=== PATIENT | male | born 1985 | race Caucasian/White ===

== ENCOUNTER 2023-04-16 09:50 | Outpatient (AMB) | payer OTHER, SELFPAY ==
[2023-04-16 09:51] VITALS: BP 122/72; PULSE 80; O2SAT 97; BMI 34.1
--- NOTE | 2023-04-16 09:51 | A.OFFPC_ITS ---
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 Old injury from 10 years ago. 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 Notes that he gets right ankle pain with cold weather. No pain at present. Uses some Tylenol for this. PMHx: R ankle fracture SurgHx: Hypoglossal Cyst removal FHx: Mom: Sciliosis, Arthritis. Dad: Colon polyps. GF: Pancreatic/Colon CA. mGF: DM SocHx: Occasional Cigar. EtOH: Occasional 1-2 dr. No drugs. [facility] Medical History (Updated 04/16/23 @ 10:19 by Indra Amin) Fracture of right ankle Irregular heart beat Stroke-like symptoms Surgical History (Updated 04/16/23 @ 10:05 by Shannan Orlando CMA) H/O removal of cyst Family History (Updated 04/16/23 @ 10:09 by Shannan Orlando CMA) Mother Low back problem Alcoholism Paternal Grandfather Cancer Maternal Grandfather Alcoholism Brother Substance abuse Social History (Updated 04/16/23 @ 10:14 by Shannan Orlando CMA) Household Members: Spouse Housing: Apartment Alcohol intake: current Tobacco use type: Cigar e-Cigarette/Vaping Use: Never Used Use of substances other than those prescribed or required for medical reasons: No Have you been hit, kicked, punched, or otherwise hurt by someone within the past year? If so, by whom?: No Do you feel safe in your current relationship?: Yes Is there a partner from a previous relationship who is making you feel unsafe now?: No Are you made to feel afraid or neglected: No Buddhist Healthcare Practices: yarsanism Are you DNR?: No Healthcare Proxy: No service: No Current occupational status: employed Cognitive needs: No Hearing needs: No Vision needs: No Questionnaire PHQ-9 Over the last 2 weeks, how often have you been bothered by any of the following problems? 1. Little interest or pleasure in doing things: not at all 2. Feeling down, depressed, or hopeless: not at all 3. Trouble falling or staying asleep, or sleeping too much: not at all 4. Feeling tired or having little energy: not at all 5. Poor appetite or overeating: not at all 6. Feeling bad about yourself - or that you are a failure or have let yourself or your family down: not at all 7. Trouble concentrating on things, such as reading the newspaper or watching television: not at all 8. Moving or speaking so slowly that other people could have noticed. Or the opposite - being so fidgety or restless that you have been moving around a lot more than usual: not at all 9. Thoughts that you would be better off or of hurting yourself in some way: not at all Total score: 0 Source: Developed by Drs. Wes Javier, Alicia Bowden, George Mcmahan and colleagues, with an educational elliott from [employer]. Thrive Questionnaire I am a: Patient What is your living situation today?: I have a steady place to live Within the past 12 months, did the food you bought not last and you didn't have the money to get more?: Never true Within the past 12 months, did you worry whether your food would run out before you got money to buy more?: Never true Do you have trouble paying for medicines?: No Do you have trouble getting transportation to medical appointments?: No Do you have trouble paying your heating and electricity bill?: No Do you have trouble taking care of your child, family member or friend?: No Do you have trouble with day-to-day activities such as bathing, preparing meals, shopping, managing finances, etc.?: No Are you currently unemployed and looking for a job?: No Are you interested in more education?: Yes AUDIT C Alcohol Use Questionnaire (AUDIT-C) 1. How often do you have a drink containing alcohol?: Monthly or less 2. How many drinks containing alcohol do you have on a typical day when you are drinking?: 1 or 2 3. How often do you have six or more drinks on one occasion?: Never Total Score: 1 CATALINA-7 AMB Questionnaire CATALINA-7 Date CATALINA - 7 assessed: 04/16/23 Feeling nervous, anxious, or on edge: 0 = Not at all Not being able to stop or control worryin = Not at all Worrying too much about different things: 0 = Not at all Trouble relaxin = Not at all Being so restless that it is hard to sit still: 0 = Not at all Becoming easily annoyed or irritable: 0 = Not at all Feeling afraid as if something awful might happen: 0 = Not at all Total CATALINA-7 score (0-4 normal; 5-9 mild; 10-14 moderate; 15-21 severe): 0 Source: Developed by Drs. Wes Javier, Alicia Bowden, George Mcmahan and colleagues, with an educational elliott from [employer]. Review of Systems Const Denies chills, Denies fatigue, Denies fever(s), Denies headache(s) and Denies weakness ENT Denies dizziness and Denies headache(s) Card Denies chest pain, Denies lightheadedness, Denies dyspnea and Denies other (Palpitations) Resp Denies cough, Denies dyspnea, Denies wheezing and Denies other ( shortness of breath) Musc Denies numbness and Denies tingling Neuro Denies dizziness, Denies headache(s), Denies numbness, Denies tingling, Denies paresthesias and Denies weakness Psych Denies anxiety and Denies depression Endo Denies fatigue Aller/Immun Denies wheezing Physical exam (Primary Care) Vital Signs: Last Vital Signs Pulse 80 04/16/23 09:51 BP 122/72 04/16/23 09:51 Pulse Ox 97 04/16/23 09:51 Oxygen Delivery Method Room Air 04/16/23 09:51 BMI result Body Mass Index 34.1 Tobacco/Smoking Status: Tobacco use Status Tobacco use date assessed 04/16/23 04/16/23 10:16 Tobacco use type Cigar 04/16/23 10:16 e-Cigarette/Vaping Use Never Used 04/16/23 10:16 PHQ-9: PHQ-9 Score PHQ-9: Total score 0 04/16/23 10:17 Const General: no acute distress and well developed Nutritional Appearance: well nourished Orientation/consciousness: patient oriented x3 HENMT Head: Yes normocephalic and Yes atraumatic Eyes General: appearance normal, both eyes and all related structures Pupils: Equal, round and reactive pupils present EOM: EOMs intact bilaterally Resp Effort & Inspection: normal respiratory effort Auscultation: clear to auscultation bilaterally Cardio Rate: regular rate Rhythm: regular rhythm Heart sounds: S1 normal heart sound present, S2 normal heart sound present, no gallops, no murmurs and no rubs Neuro General: patient oriented x3 and gait normal Cranial nerves: Yes Equal, round and reactive pupils present Psych Affect: normal affect Assessment and Plan Assessment & Plan (1) Right ankle pain: Code(s): M25.571 - Pain in right ankle and joints of right foot Plan: Intermittent right ankle pain associated with changes in weather after her a fracture 10 years ago. Likely some mild arthritis in tendinitis He can use ibuprofen, ice/heat and gentle stretching. If this flares up, he can let me know and I will refer him for physical therapy. (2) Laboratory exam ordered as part of routine general medical examination: Code(s): Z00.00 - Encounter for general adult medical examination without abnormal findings Plan: Check labs Orders: Orders Comprehensive [place]. Panel Fast Today Z00.00 - Encounter for general adult medical examination without abnormal findings Lipid Panel Today Z00.00 - Encounter for general adult medical examination without abnormal findings TSH reflex Free T4 Today Z00.00 - Encounter for general adult medical examination without abnormal findings Microalbumin, Random (w Creat) Today I10 - Essential (primary) hypertension Hepatitis B,C Profile Today Z11.3 - Encounter for screening for infections with a predominantly sexual mode of transmission HIV Ab/Ag Today Z11.3 - Encounter for screening for infections with a predominantly sexual mode of transmission Syphilis Screen Today Z11.3 - Encounter for screening for infections with a predominantly sexual mode of transmission UA and rflx microscopic Today Z00.00 - Encounter for general adult medical examination without abnormal findings CT NG by PCR Today Z11.3 - Encounter for screening for infections with a pr edominantly sexual mode of transmission Coding Level of Care Code New Pt Level 3 (26797) Diagnoses Right ankle pain M25.571 Laboratory exam ordered as part of routine general medical examination Z00.00
== END 2023-04-16 10:48 | disposition home or self-care (01) ==
PROVIDERS: Visit Provider Family Medicine
DX: M25.571 Pain in right ankle and joints of right foot (principal); Z00.00 Encounter for general adult medical examination without abnormal findings
CPT/HCPCS: 99203

== ENCOUNTER 2023-06-02 22:04 | Emergency (ER) | payer OTHER, SELFPAY ==
[2023-06-02 22:17] VITALS: BP 138/83; PULSE 72; RESP 18; TEMP 36.8; O2SAT 97; BMI 33.7
--- NOTE | 2023-06-03 00:01 | ED.GENADULT ---
HPI - General Adult General Chief complaint: Wound/Laceration Stated complaint: Laceration left thumb Time Seen by Provider: 06/02/23 23:41 Source: patient, RN notes reviewed and old records reviewed Mode of arrival: ambulatory Limitations: no limitations History of Present Illness HPI narrative: 38-year-old male presents for evaluation of a left thumb laceration. Patient reports that he was cutting dinner, cabbage, when he accidentally cut his left thumb He sustained a small laceration to the dorsal surface left thumb. Bleeding controlled prior to arrival He is unsure when his last tetanus was He reports that he has a PCP appointment coming up and will determine if he needs a tetanus booster at that appointment Related Data Home Medications Medication Instructions Recorded Confirmed No Known Home Meds 04/16/23 04/16/23 Allergies Allergy/AdvReac Type Severity Reaction Status Date / Time Seasonal Allergies Allergy Mild itchy, Verified 06/02/23 22:17 watery eyes, sneezing Review of Systems Integumentary/Breasts: Skin/Breast: Reports wounds PMFSH Past Medical History Medical History (Updated 06/03/23 @ 00:03 by Ric Coffman) Stroke-like symptoms Irregular heart beat Fracture of right ankle Surgical History (Updated 04/16/23 @ 10:05 by Shannan Orlando CMA) H/O removal of cyst Family History Family History (Updated 04/16/23 @ 10:09 by Shannan Orlando CMA) Mother Low back problem Alcoholism Paternal Grandfather Cancer Maternal Grandfather Alcoholism Brother Substance abuse Social History Social History (Updated 04/16/23 @ 10:14 by Shannan Orlando CMA) Household Members: Spouse Housing: Apartment Alcohol intake: current Tobacco use type: Cigar e-Cigarette/Vaping Use: Never Used Advance Directives: No Advance Directives Information Provided: No service: No Current occupational status: employed Cognitive needs: No Hearing needs: No Vision needs: No Physical Exam ED Vital Signs: Vital Signs - 24 hr 06/02/23 22:17 Temperature 98.3 F Pulse Rate 72 Respiratory Rate 18 Blood Pressure 138/83 Pulse Oximetry 97 Oxygen Delivery Method Room Air BMI result Body Mass Index 33.7 Const General: healthy appearing, comfortable, no acute distress, alert and awake Nutritional Appearance: well nourished Orientation/consciousness: patient oriented x3 Resp Effort & Inspection: normal respiratory effort, able to speak in complete sentences and not labored Skin Other: 2 cm partial-thickness linear laceration that is well-approximated to the dorsal surface of the right 1st proximal phalanges. No active bleeding General skin exam: elasticity normal Neuro General: patient oriented x3 Cranial nerves: Yes Bilaterally intact EOM present Cognition (Neuro): normal cognition Extrem Other: Moving all extremities well without any obvious deformities Full range of motion of flexion, extension of the left 1st finger as well as opposition of the left 1st finger Procedures Laceration Laceration 1: Site: hand Side (If applicable): left (thumb) Size (cm): 2 Description: linear Depth: simple, single layer (Partial-thickness) Skin layer closed with: other (Skin adhesive) Medical Decision Making Medical Decision Making MDM Narrative: Patient had a small linear partial-thickness laceration. It was not over a joint and was not active bleeding, therefore it was closed with Dermabond adhesive tissue. The wound was irrigated copiously and cleaned with Betadine prior to closure Differential Diagnosis Differential Diagnoses: The differential diagnosis associated with the presentation includes Laceration Skin tear Abrasion Puncture wound Discharge Plan Discharge Clinical Impression: Laceration of left thumb Patient Disposition: Home, Self-Care Instructions: Laceration (ED) Additional Instructions: Keep the area clean and dry The glue should dissolve on its own about 1 week You declined a tetanus booster today Follow-up with your primary doctor Prescriptions: No Action No Known Home Meds Interventions: ED Discharge Assessment Last Done: 06/03/23 00:11 Discharge Date/Time: 06/03/23 00:13
--- NOTE | 2023-06-03 00:12 | PC.NURSE ---
pt has 1 inch lac on L hand by thumb, bleeding under control, skin glue applied
== END 2023-06-03 00:13 | disposition home or self-care (01) ==
PROVIDERS: Emergency Provider Emergency Medicine; PCP Family Medicine
DX: S61.012A Laceration without foreign body of left thumb without damage to nail, initial encounter (principal); W26.0XXA Contact with knife, initial encounter; Y93.G1 Activity, food preparation and clean up; Y92.9 Unspecified place or not applicable; Y99.9 Unspecified external cause status
CPT/HCPCS: 12001; 99282; 99283

== ENCOUNTER 2023-07-23 09:54 | Outpatient (AMB) | payer OTHER, SELFPAY ==
--- NOTE | 2023-07-23 10:21 | MHC.PC.OV ---
Vital Signs 07/23/23 10:22 Height 6 ft 3 in Weight 272 lb BMI 34.0 BP 124/72 Blood Pressure Location Lt brachial Position Sitting Pulse 100 Pulse Source Pulse Oximeter Pulse Oximetry (%) 95 Oxygen Delivery Method Room Air Intake Visit Reasons: CPE with f/u labs and health maintenance Intake Note: Patient is here for his physical today, was not able to get his labs done. Allergies Seasonal Allergies Allergy (Mild, Verified 07/23/23 10:25) itchy, watery eyes, sneezing Tobacco use date assessed: 07/23/23 Dental Screening Dental Screen Date: 07/23/23 Did you have a dental visit in the last 12 months?: Yes Did you have a dental problem in the last 6 months where you did not have access to dental care?: No Was dental information given to patient?: Patient has dentist HPI CPE with f/u labs and health maintenance HPI Details 38 y/o male presents for a CPE with f/u labs and health maintenance. No recent labs to review. Pt reports ongoing mild cough s/p covid infection in May. Pt reports he has been eating a healthy diet. He walks and lifts for exercise. He works at an [employer]. 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 Wes Javier, Alicia Bowden, George Mcmahan and colleagues, with an educational elliott from [employer] Review of Systems Const Denies chills, Denies fatigue, Denies fever(s), Denies headache(s) and Denies weakness Eyes Denies change in vision ENT Denies dizziness, Denies headache(s), Denies hearing loss, Denies nasal congestion, Denies sinus pain, Denies sinus pressure and Denies sore throat Card Denies chest pain, Denies lightheadedness, Denies dyspnea and Denies other (palpitations) Resp Reports cough, Denies dyspnea and Denies wheezing GI Denies abdominal pain, Denies melena, Denies hematochezia, Denies change in bowel habits, Denies dyspepsia and Denies nausea Denies hematuria and Denies dysuria Musc Denies abnormal gait, Denies myalgias, Denies arthralgias, Denies numbness and Denies tingling Skin/Breast Denies rash, Denies unusual bruising and Denies wounds Neuro Denies abnormal gait, Denies dizziness, Denies headache(s), Denies memory loss, Denies numbness, Denies Sensory deficit (Neuro), Denies tingling and Denies weakness Psych Denies anxiety, Denies depression and Denies memory loss Endo Denies cold intolerance, Denies fatigue, Denies heat intolerance, Denies polydipsia and Denies polyuria [place]na/Lymph Denies easy bleeding and Denies easy bruising Aller/Immun Denies wheezing Physical exam (Primary Care) Vital Signs: Last Vital Signs Pulse 100 07/23/23 10:22 BP 124/72 07/23/23 10:22 Pulse Ox 95 07/23/23 10:22 Oxygen Delivery Method Room Air 07/23/23 10:22 BMI result Body Mass Index 34.0 Tobacco/Smoking Status: Tobacco use Status Tobacco use date assessed 07/23/23 07/23/23 10:28 Tobacco use type Cigar 07/23/23 10:28 e-Cigarette/Vaping Use Never Used 07/23/23 10:28 Const General: no acute distress, well developed, alert and awake Nutritional Appearance: well nourished Orientation/consciousness: patient oriented x3 HENMT Head: Yes normocephalic and Yes atraumatic Ears: hearing grossly normal bilaterally and TM's normal bilaterally General nose exam: Normal external nose present and Normal nares present Mouth: Normal oral and palatal mucosa present and moist mucous membranes Teeth and gingiva: dentition normal Throat: Yes posterior oropharynx normal Eyes General: appearance normal, both eyes and all related structures Pupils: Equal, round and reactive pupils present and Pupil accommodation reflex normal EOM: EOMs intact bilaterally Neck Neck: Yes normal visual inspection, Yes no lymphadenopathy and Yes trachea midline Thyroid: Thyroid normal Carotids: no bruits Lymphatic: no lymphadenopathy noted Chest Chest palpation & inspection: normal inspection of the chest Resp Effort & Inspection: normal respiratory effort Auscultation: clear to auscultation bilaterally Cardio Rate: regular rate Rhythm: regular rhythm Heart sounds: S1 normal heart sound present, S2 normal heart sound present, no gallops, no murmurs and no rubs Bruits: no abdominal aortic bruits and no carotid bruits GI Palpation (GI): No Abdominal aortic bruit present, Soft to palpation, nontender, No hepatosplenomegaly present and No Rebound tenderness present Auscultation: normal bowel sounds General: Yes no CVA tenderness Back/Spine/Pelvis Back: no CVA tenderness Cervical Spine: cervical ROM normal and No Cervical spine tenderness Thoracic/Lumbar Spine: thoraco-lumbar ROM normal, No pain with thoraco-lumbar ROM, No thoracic spinal tenderness and No lumbar spinal tenderness Skin Lesions: no lesions Rashes: no rashes Trauma: no lacerations or abrasions Wounds: no wounds Nails: normal Neuro General: patient oriented x3 Cranial nerves: Yes Equal, round and reactive pupils present Cognition (Neuro): normal cognition Gait exam (Neuro): Normal gait present Motor exam (neuro): 5/5 motor strength present throughout Sensory Exam: No Sensory deficit (Neuro) Deep tendon reflexes (DTR's): Right patellar reflex intensity grade: 2+ and Left patellar reflex intensity grade: 2+ Extrem General: Yes normal to inspection and No edema Psych Appearance: grossly normal Affect: normal affect Attitude: cooperative Thought process: Normal thought process present Assessment and Plan Assessment & Plan (1) Adult general medical exam: Code(s): Z00.00 - Encounter for general adult medical examination without abnormal findings Plan: 38-year-old?male?presents?for?complete?physical?exam Encouraged?healthy?diet?with?active?lifestyle?and?plenty?of?exercise (2) Cough: Code(s): R05.9 - Cough, unspecified Plan: S/P COVID?infection. Resolving Coding Level of Care Code Est Pt Level 3 (57560) Est Pt Prev Care 18-39y(36913) Diagnoses Adult general medical exam Z00.00 Cough R05.9
[2023-07-23 10:22] VITALS: BP 124/72; PULSE 100; O2SAT 95; BMI 34.0
== END 2023-07-23 12:01 | disposition home or self-care (01) ==
PROVIDERS: PCP Family Medicine; Visit Provider Family Medicine
DX: Z00.00 Encounter for general adult medical examination without abnormal findings (principal); R05.9 Cough, unspecified
CPT/HCPCS: 99395

== ENCOUNTER 2023-12-28 09:38 | Outpatient (AMB) | payer OTHER, SELFPAY ==
[2023-12-28 09:43] VITALS: BP 128/74; PULSE 75; O2SAT 98; BMI 34.3
--- NOTE | 2023-12-28 09:43 | MHC.PC.OV ---
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 Exam?was?within?normal?limits?and?his?exam?today?is?okay.??No?concerns. 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 Kal, George Mcmahan and colleagues, with an educational elliott from [employer]. Review of Systems Const Denies chills, Denies fatigue, Denies fever(s), Denies headache(s) and Denies weakness ENT Denies dizziness and Denies headache(s) Card Denies dyspnea Resp Denies cough, Denies dyspnea, Denies wheezing and Denies other (shortness of breath) Musc Denies numbness and Denies tingling Neuro Denies dizziness, Denies headache(s), Denies numbness, Denies tingling and Denies weakness Psych Denies anxiety and Denies depression Endo Denies fatigue Aller/Immun Denies wheezing Physical exam (Primary Care) Vital Signs: Last Vital Signs Pulse 75 12/28/23 09:43 BP 128/74 12/28/23 09:43 Pulse Ox 98 12/28/23 09:43 Oxygen Delivery Method Room Air 12/28/23 09:43 BMI result Body Mass Index 34.3 Tobacco/Smoking Status: Tobacco use Status Tobacco use date assessed 12/28/23 12/28/23 09:47 Patient Tobacco Use Status Current someday Tobacco 12/28/23 09:47 Tobacco use type Cigar 12/28/23 09:47 e-Cigarette/Vaping Use Never Used 12/28/23 09:47 Const General: well developed; No acute distress Nutritional Appearance: well nourished Orientation/consciousness: patient oriented x3 [facility]: Yes normocephalic and Yes atraumatic Eyes General: appearance normal, both eyes and all related structures Pupils: Equal, round and reactive pupils present EOM: EOMs intact bilaterally Resp Effort & Inspection: normal respiratory effort Neuro General: patient oriented x3 and gait normal Cranial nerves: Yes Equal, round and reactive pupils present Psych Affect: normal affect Assessment and Plan Assessment & Plan (1) Adult general medical exam: Code(s): Z00.00 - Encounter for general adult medical examination without abnormal findings Plan: As?above,?reviewed?patient's?June?complete?physical?exam Exam?today?within?normal?limits.??No?concerns?regarding?his?physical?or?mental?health. Filled?out?paperwork?for?patient?to?is?working?on?adoption?of?child No?concerns. Coding Level of Care Code Est Pt Level 3 (61426) Diagnoses Adult general medical exam Z00.00
== END 2023-12-28 10:28 | disposition home or self-care (01) ==
PROVIDERS: PCP Family Medicine; Visit Provider Family Medicine
DX: Z02.82 Encounter for adoption services (principal)
CPT/HCPCS: 99213

== ENCOUNTER 2024-02-23 09:59 | Outpatient (REF) | payer OTHER, SELFPAY ==
[2024-02-23 11:27] LABS: Appearance Urine Clear; Color Urine Yellow; Glucose Urine UA Negative (Negative); Leukocyte Esterase Urine Negative (Negative); Nitrite Urine Negative (Negative); PH 6.5 (5.0-9.0); Specific Gravity - Urine 1.015 (1.005-1.025); Urine Blood Negative (Negative); Urine Ketones Negative (Negative); Urine Protein Negative (Neg-Trace)
[2024-02-23 11:45] LABS: Creatinine Urine 117.63 mg/dL; Microalbum/Creatinine Ratio Ur 5.1 ug/mg cr (<30)
[2024-02-23 11:56] LABS: Alanine Aminotransferase 26 U/L (0-40); Albumin Level 4.3 g/dL (3.5-5.0); Alkaline Phosphatase 48 U/L (39-117); Anion Gap 13 (12-20); Aspartate Amino Transferase 21 U/L (5-37); Bilirubin Total 0.6 mg/dL (0.0-1.0); Blood Urea Nitrogen 10 mg/dL (9-16); Calcium 9.6 mg/dL (8.4-10.2); Carbon Dioxide 28 mmol/L (22-29); Chloride 107 mmol/L (96-108); Cholesterol 221 mg/dL (<200); Estimated Glomerular Filt Rate > 60; Glucose Fasting 95 mg/dL (60-99); HDL Cholesterol 34 mg/dL (>40); LDL Cholesterol Calculated 163 mg/dL (<100); Potassium 4.8 mmol/L (3.3-5.1); Sodium 143 mmol/L (135-145); Total Protein 7.7 g/dL (6.5-8.0); Triglycerides 122 mg/dL (<150)
[2024-02-23 12:05] LABS: TSH reflex Free T4 2.26 uIU/mL (0.32-4.0)
[2024-02-25 03:33] LABS: Syphilis Screen Nonreactive (Nonreactive)
[2024-02-25 03:47] LABS: HBS Num1 11.97 mIU/mL (0-7.99); HBc Num1 0.16 S/CO (0.00-0.79); HBsAGNum1 0.29 S/CO (0.00-0.99); HIV AB/AG Nonreactive (Nonreactive); HIV Num 1 0.06 S/CO (0.00-0.99); Hepatitis B Core Antibody Nonreactive (Nonreactive); Hepatitis B Surface Antigen Negative (Negative); ~HepC Num1 0.18 S/CO (0.00-0.79); ~Hepatitis C Antibody Nonreactive (Nonreactive)
[2024-02-25 04:33] LABS: HBS Num2 12.22 mIU/mL (0-7.99); HBS Num3 12.39 mIU/mL (0-7.99); ~Hepatitis B Surface Antibody REACTIVE (Nonreactive)
== END 2024-02-23 10:00 | disposition home or self-care (01) ==
LOC: HO.HMGCLDS 09:59
PROVIDERS: PCP Family Medicine; Visit Provider Family Medicine
DX: Z00.00 Encounter for general adult medical examination without abnormal findings (principal); I10 Essential (primary) hypertension; Z11.3 Encounter for screening for infections with a predominantly sexual mode of transmission
CPT/HCPCS: 36415; 80053; 80061; 81003; 82043; 82570; 84443; 86704; 86706; 86780; 86803; 87340; 87389

== ENCOUNTER 2024-02-25 08:37 | Outpatient (AMB) | payer OTHER, SELFPAY ==
[2024-02-25 08:40] VITALS: BP 118/72; PULSE 67; O2SAT 97; BMI 33.2
--- NOTE | 2024-02-25 08:40 | MHC.PC.OV ---
Vital Signs 02/25/24 08:40 Height 6 ft 3 in Weight 265 lb 4 oz BMI 33.2 BP 118/72 Blood Pressure Location Lt brachial Position Sitting Pulse 67 Pulse Source Pulse Oximeter Pulse Oximetry (%) 97 Oxygen Delivery Method Room Air Intake Visit Reasons: F/U lab results Intake Note: Patient is here to follow up on lab work today. Allergies Seasonal Allergies Allergy (Mild, Verified 02/25/24 08:42) itchy, watery eyes, sneezing Medication List - Last Reconciled 02/25/24 by Ramirez Grant MD No Known Home Meds Tobacco use date assessed: 02/25/24 Dental Screening Dental Screen Date: 12/28/23 HPI F/U lab results HPI Details 38 y/o male presents to f/u labs. Reviewed labs with pt. Triglycerides 122. TC 221. LDL 153. HDL low at 34. 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 Wes Javier, Alicia Bowden, George Mcmahan and colleagues, with an educational elliott from [employer]. Review of Systems Const Denies chills, Denies fatigue, Denies fever(s), Denies headache(s) and Denies weakness ENT Denies dizziness and Denies headache(s) Card Denies dyspnea Resp Denies cough, Denies dyspnea, Denies wheezing and Denies other (shortness of breath) Musc Denies numbness and Denies tingling Neuro Denies dizziness, Denies headache(s), Denies numbness, Denies tingling and Denies weakness Psych Denies anxiety and Denies depression Endo Denies fatigue Aller/Immun Denies wheezing Physical exam (Primary Care) Vital Signs: Last Vital Signs Pulse 67 02/25/24 08:40 BP 118/72 02/25/24 08:40 Pulse Ox 97 02/25/24 08:40 Oxygen Delivery Method Room Air 02/25/24 08:40 BMI result Body Mass Index 33.2 Tobacco/Smoking Status: Tobacco use Status Tobacco use date assessed 02/25/24 02/25/24 08:45 Patient Tobacco Use Status Current someday Tobacco 02/25/24 08:45 Tobacco use type Cigar 02/25/24 08:45 e-Cigarette/Vaping Use Never Used 02/25/24 08:45 Const General: well developed; No acute distress Nutritional Appearance: well nourished Orientation/consciousness: patient oriented x3 HENMT Head: Yes normocephalic and Yes atraumatic Eyes General: appearance normal, both eyes and all related structures Pupils: Equal, round and reactive pupils present EOM: EOMs intact bilaterally Resp Effort & Inspection: normal respiratory effort Neuro General: patient oriented x3 and gait normal Cranial nerves: Yes Equal, round and reactive pupils present Psych Affect: normal affect Assessment and Plan Assessment & Plan (1) Hyperlipidemia: Code(s): E78.5 - Hyperlipidemia, unspecified Plan: TC?and?LDL?Cholesterol?levels?are?too?high?and?HDL is?low. Starting?atorvastatin He?will?recheck?lipids?a?few?days?prior?to?her?next?visit?in?about?3?months. (2) Low HDL (under 40): Code(s): E78.6 - Lipoprotein deficiency Orders: Orders Lipid Panel Today E78.5 - Hyperlipidemia, unspecified, Z00.00 - Encounter for general adult medical examination without abnormal findings Comprehensive [place]. Panel Fast Today E78.5 - Hyperlipidemia, unspecified, Z00.00 - Encounter for general adult medical examination without abnormal findings Medications: New atorvastatin 40 mg PO BEDTIME 90 days 90 tabs 2RF Coding Level of Care Code Est Pt Level 3 (13609) Diagnoses Hyperlipidemia E78.5 Low HDL (under 40) E78.6
== END 2024-02-25 08:57 | disposition home or self-care (01) ==
PROVIDERS: PCP Family Medicine; Visit Provider Family Medicine
DX: E78.5 Hyperlipidemia, unspecified (principal); E78.6 Lipoprotein deficiency
CPT/HCPCS: 99213

== ENCOUNTER 2024-04-07 08:36 | Outpatient (AMB) | payer OTHER, SELFPAY ==
--- NOTE | 2024-04-07 08:40 | MHC.OFFWIV ---
Intake Vital Signs 04/07/24 08:41 Height 6 ft 3 in Weight 272 lb BMI 34.0 BP 130/90 H Blood Pressure Location Rt brachial Position Sitting Pulse 99 Pulse Source Pulse Oximeter Pulse Oximetry (%) 97 Oxygen Delivery Method Room Air Intake Visit Reasons: EP RT ankle injury Intake Note: Patient here for right ankle injury that happened in a trampoline foam pit. pt has a hx of right ankle injury in the past. Patient Tobacco Use Status: Current someday Tobacco user Allergies Seasonal Allergies Allergy (Mild, Verified 04/07/24 08:41) itchy, watery eyes, sneezing Do you need a note to return to daycare/school/sports/work: Yes HPI EP RT ankle injury HPI Details This note is constructed using voice recognition software. While every effort has been made to ensure accuracy, mail clerk errors may have been included. The patient is a 38 year old male who presents to the clinic today with right ankle pain on the medial aspect after ending in the foam pit [place] the [employer] park. He notes that he is able to walk but he is walking with a limp, he has mild pain, taking ibuprofen as needed. He has applied Aristeo wrap applied ice. 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 Cognitive needs: No Hearing needs: No Vision needs: No Review of Systems Const All systems reviewed & are unremarkable except as noted in HPI and below Physical Exam Vital Signs: Last Vital Signs Pulse 99 04/07/24 08:41 BP 130/90 H 04/07/24 08:41 Pulse Ox 97 04/07/24 08:41 Oxygen Delivery Method Room Air 04/07/24 08:41 BMI result Body Mass Index 34.0 Const General: cooperative, healthy appearing, comfortable, no acute distress and alert Orientation/consciousness: patient oriented x3 Limitations: no limitations Skin General skin exam: no rashes or lesions noted, elasticity normal and turgor normal Neuro General: patient oriented x3 Extrem Other: Negative thomspon. FROM. TTP posterior to medial maleolus. Echymosis and edema present throughout. General: Yes normal to inspection, Yes full ROM, Yes capillary refill normal and Yes normal exam except as noted Psych Appearance: grossly normal Mental Status: mental status grossly normal Speech and movement: Normal speech and movement present Affect: normal affect Assessment & Plan Assessment & Plan (1) Ankle fracture, right: Code(s): S82.891A - Other fracture of right lower leg, initial encounter for closed fracture Qualifiers: Encounter type: initial encounter Fracture type: closed Qualified Code(s): S82.891A - Other fracture of right lower leg, initial encounter for closed fracture Plan: X-ray appears to have avulsion fracture. Aristeo wrap remains in place, patient provided with boot. Referral to ortho placed. Letter provided for out of work until evaluation by ortho. Advised rest, ice, compression, elevation, boot when he is out of bed walking. Plan See above for full details and plan. Orders: Referrals Orthopedics Referral S82.891A - Other fracture of right lower leg, initial encounter for closed fracture Coding Level of Care Code Est Pt Level 4 (02859) Diagnoses Closed fracture of right ankle, initial encounter S82.891A Encounter type: initial encounter Fracture type: closed
[2024-04-07 08:41] VITALS: BP 130/90; PULSE 99; O2SAT 97; BMI 34.0
== END 2024-04-07 10:54 | disposition home or self-care (01) ==
PROVIDERS: PCP Family Medicine; Visit Provider Registered Nurse
DX: S82.891A Other fracture of right lower leg, initial encounter for closed fracture (principal)
CPT/HCPCS: 99214

== ENCOUNTER 2024-04-07 09:29 | Outpatient (REF) | payer OTHER, SELFPAY ==
--- NOTE | ~2024-04-07 | XR_ITS ---
EXAMINATION: XR ANKLE, RIGHT CLINICAL INFORMATION: Pain COMPARISON: None available. TECHNIQUE: AP, lateral, and mortise views of the right ankle. FINDINGS: No acute visible fracture or dislocation. 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 Ankle mortise is symmetric. Plantar calcaneal heel spur. Enthesopathy at the Achilles tendon insertion site. Joint space alignment otherwise maintained. Soft tissue prominence along the lower extremity, ankle, and hindfoot. XR/XR ankle RT min 3V IMPRESSION: 1. No acute visible fracture or dislocation. 2. 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 3. Plantar calcaneal heel spur. 4. Enthesopathy at the Achilles tendon insertion site. 5. Soft tissue prominence along the lower extremity, ankle, and hindfoot.
== END 2024-04-07 09:30 | disposition home or self-care (01) ==
LOC: HO.HMGCX 09:29
PROVIDERS: PCP Family Medicine; Visit Provider Registered Nurse
DX: M25.571 Pain in right ankle and joints of right foot (principal)
CPT/HCPCS: 73610

== ENCOUNTER 2024-05-26 08:40 | Outpatient (AMB) | payer OTHER, SELFPAY ==
[2024-05-26 08:43] VITALS: BP 116/60; PULSE 83; RESP 12; TEMP 36.7; O2SAT 97; BMI 34.0
--- NOTE | 2024-05-26 08:43 | A.OFFPC_ITS ---
Vital Signs 05/26/24 08:43 Height 6 ft 3 in Weight 272 lb 2 oz BMI 34.0 BP 116/60 Blood Pressure Location Lt brachial Position Sitting Respiration 12 Pulse 83 Pulse Source Pulse Oximeter Temp 98.0 F Temp Source Oral Pulse Oximetry (%) 97 Oxygen Delivery Method Room Air Intake Visit Reasons: f/u HLD Intake Note: follow up for hdl Allergies Seasonal Allergies Allergy (Mild, Verified 05/26/24 08:43) itchy, watery eyes, sneezing Tobacco use date assessed: 02/25/24 Dental Screening Dental Screen Date: 12/28/23 HPI f/u HLD HPI Details 39 y/o male presents to f/u HLD. No recent labs to review. Had already reviewed labs drawn in January. Triglycerides 122. TC 221. LDL 163. HDL low at 34. Had started him on artovastatin 40mg. Patient?has?not?gotten?his?labs?drawn?yet. Notes he had fallen off artovastatin. Wants?to?discuss?ankle. X-ray appeared to have avulsion fracture. Was referred to [facility] and had been following up with them. Continues to elevate/ice his ankle. HPI Comments History of Present Illness Details Documentation assistance for Ramirez Grant MD, was provided by Indra Amin, Ultrasonic Tester on 05/26/2024 at 8:56 AM EST. I, Dr. Grant, have read, observed, and verified documentation. 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 Wes Javier, Alicia Bowden, George Mcmahan and colleagues, with an educational elliott from [employer]. Review of Systems Const Denies chills, Denies fatigue, Denies fever(s), Denies headache(s) and Denies weakness ENT Denies dizziness and Denies headache(s) Card Denies dyspnea Resp Denies cough, Denies dyspnea, Denies wheezing and Denies other (shortness of breath) Musc Denies numbness and Denies tingling Neuro Denies dizziness, Denies headache(s), Denies numbness, Denies tingling and Denies weakness Psych Denies anxiety and Denies depression Endo Denies fatigue Aller/Immun Denies wheezing Physical exam (Primary Care) Vital Signs: Last Vital Signs Temp 98.0 F 05/26/24 08:43 Pulse 83 05/26/24 08:43 Resp 12 05/26/24 08:43 BP 116/60 05/26/24 08:43 Pulse Ox 97 05/26/24 08:43 Oxygen Delivery Method Room Air 05/26/24 08:43 BMI result Body Mass Index 34.0 Tobacco/Smoking Status: Tobacco use Status Tobacco use date assessed 02/25/24 05/26/24 08:47 Patient Tobacco Use Status Current someday Tobacco 05/26/24 08:47 Tobacco use type Cigar 05/26/24 08:47 e-Cigarette/Vaping Use Never Used 05/26/24 08:47 Const General: well developed; No acute distress Nutritional Appearance: well nourished Orientation/consciousness: patient oriented x3 [facility] Head: Yes normocephalic and Yes atraumatic Eyes General: appearance normal, both eyes and all related structures Pupils: Equal, round and reactive pupils present EOM: EOMs intact bilaterally Resp Effort & Inspection: normal respiratory effort Neuro General: patient oriented x3 and gait normal Cranial nerves: Yes Equal, round and reactive pupils present Extrem Other: R ankle swelling Good range of motion Psych Affect: normal affect Assessment and Plan Assessment & Plan (1) Hyperlipidemia: Code(s): E78.5 - Hyperlipidemia, unspecified Plan: Patient?has?been off?atorvastatin. He?will?resume?this Will?get?labs?rechecked?prior?to?next?visit (2) Low HDL (under 40): Code(s): E78.6 - Lipoprotein deficiency Plan: Patient?had?low?HDL?and?I?had?encouraged?exercise.??However,?patient?had?injured ?his?right?ankle-see?below. Has?not?been?able?to?exercise?but?this?has?been?improving. Encouraged?him?to?start?physical?therapy?and?to?be?an?exercise?as?tolerated. (3) Ankle fracture, right: Code(s): S82.891A - Other fracture of right lower leg, initial encounter for closed fracture Plan: S/p?right?lateral?malleolar?avulsion?fracture Appears?to?be?healing?well?though?still?has?significant?swelling. Seen by [facility] Was in walking boot x 1 week now in ankle brace Advised?elevation?and?ice He?should?be?josselyn dy?for?physical?therapy?though?he?says?the?cost?has?been?making?him?apprehensive Encouraged?him?to?start?physical?therapy Coding Level of Care Code Est Pt Level 3 (98070) Diagnoses Hyperlipidemia E78.5 Low HDL (under 40) E78.6 Ankle fracture, right S82.633Y
== END 2024-05-26 09:17 | disposition home or self-care (01) ==
PROVIDERS: PCP Family Medicine; Visit Provider Family Medicine
DX: E78.5 Hyperlipidemia, unspecified (principal); E78.6 Lipoprotein deficiency; S82.891A Other fracture of right lower leg, initial encounter for closed fracture

== ENCOUNTER → 2024-05-26 08:40 | Outpatient (BNVA) | payer OTHER, SELFPAY | PROVIDERS: PCP Family Medicine; Visit Provider Family Medicine ==